=== PATIENT | female | born 1955 | race African-American/Black ===

== ENCOUNTER 2017-07-03 14:18 | Emergency (ER) | payer OTHER ==
[~2017-07-03] VITALS: Ht 162.6 cm; Wt 73.0 kg
[2017-07-03] MEDS ORDERED: [UNRECOGNIZED DRUG - CODE] PO (14:33)
[2017-07-03] MEDS ORDERED: AMIT25TA9 PO (14:33)
[2017-07-03] MEDS ORDERED: FURO20 PO (14:33)
[2017-07-03] MEDS ORDERED: AMLO2.5T PO (14:33)
[2017-07-03 14:45] VITALS: BP 130/84
[2017-07-03] MEDS ORDERED: ACETAMINOPHEN/CODEINE 300-30 MG TABLET PO ONE ×2 (15:15→17:15)
[2017-07-03] MEDS ORDERED: CARBAMIDE PEROXIDE 6.5% 15 ML OTIC SOLUTION AS ONE (16:15)
== END 2017-07-03 17:46 | disposition home or self-care (01) ==
LOC: EMS 14:20
DX: T16.2XXA Foreign body in left ear, initial encounter (principal); H92.02 Otalgia, left ear; I10 Essential (primary) hypertension; Z85.3 Personal history of malignant neoplasm of breast; X58.XXXA Exposure to other specified factors, initial encounter; Y93.89 Activity, other specified; Y92.89 Other specified places as the place of occurrence of the external cause; Y99.9 Unspecified external cause status
CPT/HCPCS: 69200; 99284